=== PATIENT | female | born 1965 | race African-American/Black ===

== ENCOUNTER → 2017-03-01 | Outpatient (CLI) | payer OTHER, BC ==
[~2017-03-01] MED LIST: ACETAMINOPHEN PO; ASPIRIN EC81 M1 PO; ASPIRIN PO; ASPIRIN81 MG PO; B COMPLEX1 EACH PO; BENICAR PO; BENTYL20 MG PO; CALCIUM 600 +1 EAC5 PO; CALCIUM 600 MG1 EAC1 PO; CHEWABLE ASPIRI81 MG PO; FLAGYL PO; KLONOPIN PO; LEVAQUIN PO; LISINOPRIL20 MG PO; LISINOPRIL5 MG PO; MEDROL4 MG/DOSE- PO; METOPROLOL SUCC25 MG PO; METOPROLOL TART25 MG PO; MULTI VITAMIN1 EACH PO; MULTI-VITAMIN1 TAB PO; MULTIVITAMINS1 EAC3 PO; NITROGLYGERIN0.4 MG SL; NITROSTAT0.4 MG SL; POTASSIUM GLUC500 MG PO; PROTONIX PO; TOPAMAX PO; TOPAMAX25 M1 PO; TOPIRAMATE100 MG PO; TOPROL XL PO; TYLENOL EXTRA500 M1 PO; TYLENOL500 MG PO; TYLOX 5-500 CA1 EACH PO; ULTRAM PO; VICODIN 5/1 TAB 5/50 PO; VITAMIN C100 MG PO; VITAMIN D-32000 UNI1 PO; VITAMIN D31000 UNIT PO; ZITHROMAX PO; ZOFRAN ODT4 MG PO; [UNRECOGNIZED DRUG - REMARK] PO
--- NOTE | ~2017-03-01 | EKG ---
PATIENT: SARA FLEMING UNIT #: [id number] Ventricular Rate: 68 BPM Atrial Rate: 68 BPM P-R Interval: 186 ms QRS Duration: 94 ms Q-T Interval: 432 ms QTC Calculation(Bezet): 459 ms P Amory: 55 degrees Calculated R Amory: 53 degrees Calculated T Amory: -3 degrees Diagnosis Line: Normal sinus rhythm Diagnosis Line: Left ventricular hypertrophy Diagnosis Line: Nonspecific T wave abnormality Diagnosis Line: Abnormal ECG Diagnosis Line: When compared with ECG of 10-MAY-2015 15:55, Diagnosis Line: No significant change was found Diagnosis Line: Confirmed by LEONCIO ZHONG MD ([id number]) on Diagnosis Line: 03/01/2017 10:16:24 PM INTERPRETING : CODY
== END | disposition home or self-care (01) ==
LOC: CAMB 08:00
DX: Z01.810 Encounter for preprocedural cardiovascular examination (principal); R10.12 Left upper quadrant pain; R94.31 Abnormal electrocardiogram [ECG] [EKG]
CPT/HCPCS: 93005

== ENCOUNTER 2017-03-04 06:51 | Day surgery (SDC) | payer BC ==
--- NOTE | ~2017-03-04 | OR ---
Unit #: [id number] #: [id number] Patient: SARA FLEMING [id number] [address] [place], [place] [address] [id number] Lilibeth MR#: [id number] NAME: SARA FLEMING. ROOM: Date of Procedure: 03/04/2017 Admission Date: 03/04/2017 Surgeon: John Bledsoe III, M.D. : 1965 Attending Physician: John Bledsoe III, M.D. Primary Care Physician: Lenora Castro M.D. OPERATIVE REPORT PREOPERATIVE DIAGNOSES Left upper quadrant pain and intolerance to lap band. POSTOPERATIVE DIAGNOSIS Left upper quadrant pain and intolerance to lap band. PROCEDURES PERFORMED Diagnostic laparoscopy and laparoscopic removal of adjustable gastric band and port. ANESTHESIA General endotracheal tube anesthesia. ESTIMATED BLOOD LOSS Minimal. COMPLICATIONS None apparent. INDICATIONS FOR PROCEDURE This is a 51-year-old lady, who has had some fairly severe ongoing left upper quadrant pain. We have done an extensive workup that has not shown anything wrong with her lap band or any other etiologies of the pain. She is here today for diagnostic laparoscopy and also understands that we will remove the lap band since the pain started after placement of that device. DESCRIPTION OF PROCEDURE After consent was obtained, the patient was brought to the operating room and placed in the supine position. General anesthetic was administered. Her abdomen was prepped and draped in standard surgical fashion. I made a 1-inch incision overlying where her port was. I dissected down and excised this from the surrounding tissue. I then placed a Visiport in that location and obtained CO2 pneumoperitoneum. I then performed diagnostic laparoscopy and other than some mild adhesions in the left upper quadrant, I did not see any other abnormalities. There were no peritoneal implants. No hernias. She had no inflammation around her tubing and her band was in good position. I then placed a 5 mm Butch liver retractor in the subxiphoid region to provide exposure of the GE junction. I then placed a 10-mm port in the left upper quadrant and a 5-mm port in the left lateral subcostal region. I followed the band tubing up to the stomach. I dissected out the capsule and once the buckle was identified, it was released and the band was divided in half and Unit #: [id number] #: [id number] Patient: SARA FLEMING removed from the upper portion of the stomach. I then removed all parts of the band. Again, I did not see any other abnormalities. The few adhesions that were present in the left upper quadrant were taken down. I then removed all the trocars, releasing the pneumoperitoneum. All the incisions were injected with 0.25% plain Marcaine and the skin edges were reapproximated with interrupted 4-0 Vicryl subcuticular suture. Steri-Strips were then applied. The patient tolerated the procedure without any problems and returned to the recovery room in stable condition. Dictated by... John Bledsoe III, M.D. VCL/morales TD: 03/07/2017 07:14 JOB #: [id number] OPERATIVE REPORT Page 1 of 1 X John Bledsoe III, MD PROCEDURE OPERATIVE NOTE
[~2017-03-04 06:51] MED LIST changes: -ASPIRIN EC81 M1 PO; -B COMPLEX1 EACH PO; -CALCIUM 600 +1 EAC5 PO; -FLAGYL PO; -LEVAQUIN PO; -METOPROLOL TART25 MG PO; -MULTIVITAMINS1 EAC3 PO; -POTASSIUM GLUC500 MG PO; -VITAMIN C100 MG PO; -VITAMIN D31000 UNIT PO; -[UNRECOGNIZED DRUG - REMARK] PO
[2017-03-04] MEDS ORDERED: METOPROLOL TART25 MG PO (09:11)
[2017-03-04] MEDS ORDERED: TOPIRAMATE100 MG PO (09:12)
[2017-03-04] MEDS ORDERED: VITAMIN C100 MG PO (09:13)
[2017-03-04] MEDS ORDERED: ASPIRIN EC81 M1 PO (09:13)
[2017-03-04] MEDS ORDERED: CALCIUM 600 +1 EAC5 PO (09:13)
[2017-03-04] MEDS ORDERED: B COMPLEX1 EACH PO (09:14)
[2017-03-04] MEDS ORDERED: [UNRECOGNIZED DRUG - REMARK] PO (09:15)
[2017-03-04] MEDS ORDERED: POTASSIUM GLUC500 MG PO (09:15)
[2017-03-04] MEDS ORDERED: MULTIVITAMINS1 EAC3 PO (09:16)
[2017-03-04] MEDS ORDERED: VITAMIN D31000 UNIT PO (09:16)
[2017-06-17] MEDS ORDERED: LEVAQUIN PO (10:20)
[2017-06-17] MEDS ORDERED: FLAGYL PO (10:20)
== END 2017-03-04 13:15 | disposition home or self-care (01) ==
LOC: CSUR 06:51 → CPACUOF 09:52 → CSUR 13:15
DX: K95.09 Other complications of gastric band procedure (principal); I10 Essential (primary) hypertension; E66.01 Morbid (severe) obesity due to excess calories; M19.90 Unspecified osteoarthritis, unspecified site; Z68.43 Body mass index [BMI] 50.0-59.9, adult; Z91.040 Latex allergy status; Z88.8 Allergy status to other drugs, medicaments and biological substances; Z79.82 Long term (current) use of aspirin; Z79.899 Other long term (current) drug therapy; Z90.49 Acquired absence of other specified parts of digestive tract; Z98.51 Tubal ligation status; Z98.84 Bariatric surgery status
CPT/HCPCS: 84132; 84703; J0330; J2250; J2270; J2405; J2710; J3010

== ENCOUNTER → 2017-05-31 | Outpatient (CLI) | payer BC ==
[~2017-05-31] MED LIST changes: +ASPIRIN EC81 M1 PO; +B COMPLEX1 EACH PO; +CALCIUM 600 +1 EAC5 PO; +FLAGYL PO; +LEVAQUIN PO; +METOPROLOL TART25 MG PO; +MULTIVITAMINS1 EAC3 PO; +POTASSIUM GLUC500 MG PO; +VITAMIN C100 MG PO; +VITAMIN D31000 UNIT PO; +[UNRECOGNIZED DRUG - REMARK] PO
--- NOTE | ~2017-05-31 | US85 ---
[facility] A Service of [facility] RADIOLOGY TEXT RESULTS PATIENT: SARA FLEMING LOCATION: CNIV : 63 UNIT #: [id number] AGE: [address]: Elsy Girard APRN SEX: F ORDER DR: [id number] [facility] [address] [facility]. [place], [place] [address] [id number] O MR#: [id number] Acc #: [id number] NAME: SARA FLEMING : 1965 SEX: F STUDY DATE/TIME: 05/31/2017 16:45 UNIT: CNIV ROOM: STUDY DESCRIPTION: [facility] Attending Physician: Elsy Girard A.P.R.N. Referring Physician: Elsy Girard A.P.R.N. Ordering Physician: Elsy Girard A.P.R.N. Primary Care Physician: Lenora Castro M.D. MEDICAL IMAGING REPORT This report is preliminary unless electronic signature is present DATE OF EXAM 05/31/2017 EXAMINATION Right lower extremity venous duplex. CLINICAL HISTORY Right lower extremity pain and swelling of the knee and calf x3 weeks, has history of right knee replacement 9 years ago. FINDINGS There is phasic spontaneous flow with respiration seen on the right common, common deep femoral, femoral, popliteal, anterior/posterior tibial, peroneal, saphenous veins. There is some visible of the vein lumen of all the aforementioned vessels. IMPRESSION 1. There is no evidence of a DVT of the right lower extremity on today's exam. Dictated by... Adi Dominguez M.D. THIS IS AN ELECTRONICALLY VERIFIED REPORT Adi Dominguez M.D. at 06/01/2017 8:14 PM Marianna TD: 06/01/2017 16:23 JOB #: [id number] [facility] A Service of [facility] RADIOLOGY TEXT RESULTS PATIENT: SARA FLEMING LOCATION: CNIV : 63 UNIT #: [id number] AGE: [address]: Elsy Girard APRN SEX: F ORDER DR: MEDICAL IMAGING REPORT Page 1 of 1 COPY
--- NOTE | ~2017-05-31 | CR253 ---
[facility] A Service of [facility] RADIOLOGY TEXT RESULTS PATIENT: SARA FLEMING LOCATION: CNIV : 63 UNIT #: [id number] AGE: [address]: Elsy Girard APRN SEX: F ORDER DR: [id number] [address] [id number] [facility]. [place], [place] [address] [id number] O MR#: [id number] Acc #: [id number] NAME: SARA FLEMING : 1965 SEX: F STUDY DATE/TIME: 05/31/2017 17:09 UNIT: CNIV ROOM: STUDY DESCRIPTION: CR Tibia and Fibula 2 Views Rt Attending Physician: Elsy Girard A.P.R.N. Referring Physician: Elsy Girard A.P.R.N. Ordering Physician: Elsy Girard A.P.R.N. Primary Care Physician: Lenora Castro M.D. MEDICAL IMAGING REPORT This report is preliminary unless electronic signature is present EXAM Right tibia and fibula, 2 views COMPARISON None INDICATIONS 51-year-old female with [id number] right leg pain and swelling for 2 weeks. No known trauma. FINDINGS Right total knee arthroplasty is noted. No evidence of hardware complication on this exam. Bones are anatomically aligned. No evidence of acute fracture. IMPRESSION No evidence of acute fracture or dislocation of the right tibia or fibula. There is a right total knee arthroplasty. Please note that the arthroplasty is not well evaluated on this exam due to incomplete inclusion. No convincing evidence of hardware complication is seen. Dictated by... Gael Plasencia M.D. THIS IS AN ELECTRONICALLY VERIFIED REPORT Gael Plasencia M.D. at 06/01/2017 8:18 PM JARROD/vianney TD: 06/01/2017 14:41 JOB #: [id number] MEDICAL IMAGING REPORT [facility] A Service of [facility] RADIOLOGY TEXT RESULTS PATIENT: SARA FLEMING [id number] [birth year] UNIT #: [id number] AGE: [address]: Elsy Girard APRN SEX: F ORDER DR: Page 1 of 1 COPY
== END | disposition home or self-care (01) ==
LOC: CNIV 16:20
DX: M79.604 Pain in right leg (principal); Z96.651 Presence of right artificial knee joint
CPT/HCPCS: 73590; 93971